=== PATIENT | male | born 1990 | race African-American/Black ===

== ENCOUNTER 2020-10-05 11:46 | Emergency (ER) | payer OTHER ==
[~2020-10-05] VITALS: Ht 172.7 cm; Wt 80.7 kg
[2020-10-05 14:21] LABS: GC DNA AMPLIFICATION NEGATIVE (NEGATIVE)
[2020-10-05] MEDS ORDERED: AZITHROMYCIN 250MG TABLET PO ONE (15:20)
[2020-10-05 15:44] VITALS: BP 134/89
== END 2020-10-05 15:46 | disposition home or self-care (01) ==
LOC: M ED 11:46
DX: A74.9 Chlamydial infection, unspecified (principal); R30.0 Dysuria

== ENCOUNTER → 2020-11-03 | Outpatient (CLI) | payer OTHER ==
--- NOTE | 2020-11-03 14:03 | REP ---
INDICATION: RT LEG PAIN. COMPARISON: None. TECHNIQUE: 22.0 mCi of technetium 99 M MDP is injected and standard 3 phase imaging of the calves is acquired. FINDINGS: Anterior and posterior flow study is normal. Blood pool images demonstrate normal symmetric soft tissue uptake in the calf soft tissues bilaterally. Delayed scan images show a mild pattern of increased uptake in the medial and posterior tibial cortices bilaterally consistent with mild stress periostitis. No established stress fracture is seen. IMPRESSION: Mild stress periostitis pattern in each tibia. No established stress fracture seen. <Electronically signed by Avery Mcdaniel > 11/03/20 1400
== END ==
LOC: M RAD 10:15
PROVIDERS: ATTEND Nurse Practitioner
DX: M79.604 Pain in right leg (principal)
CPT/HCPCS: 78315; A9503

== ENCOUNTER 2021-03-10 09:31 | Emergency (ER) | payer OTHER ==
[~2021-03-10] VITALS: Ht 172.7 cm; Wt 77.4 kg
[2021-03-10] MEDS ORDERED: MELO15TA28 PO (09:38)
[2021-03-10] MEDS ORDERED: MECLIZINE 12.5 MG TAB PO ONE (11:30)
[2021-03-10] MEDS ORDERED: MECL1TAB31 PO (11:53)
[2021-03-10 12:11] VITALS: BP 140/79
== END 2021-03-10 12:26 | disposition home or self-care (01) ==
LOC: M ED 09:31
DX: H93.12 Tinnitus, left ear (principal); G43.909 Migraine, unspecified, not intractable, without status migrainosus; M54.50 Low back pain, unspecified

== ENCOUNTER → 2021-06-16 | Outpatient (CLI) | payer OTHER ==
[~2021-06-16] MED LIST: MECL1TAB31 PO; MELO15TA28 PO
== END ==
LOC: M SLEEP 20:00
PROVIDERS: ATTEND Nurse Practitioner Family
DX: R06.83 Snoring (principal)

== ENCOUNTER → 2021-07-13 | Outpatient (CLI) | payer OTHER ==
[~2021-07-13] MED LIST changes: +PROHANCE 279.3MG/ML 15ML VIAL ONE
== END ==
LOC: M PLAIMG 09:12
PROVIDERS: ATTEND Otolaryngology
DX: H93.12 Tinnitus, left ear (principal)
CPT/HCPCS: 70553; A9576

== ENCOUNTER → 2021-07-18 | Outpatient (REF) ==
[~2021-07-18] MED LIST changes: -PROHANCE 279.3MG/ML 15ML VIAL ONE
== END ==
LOC: M PLAIMG 12:19
PROVIDERS: ATTEND Internal Medicine
DX: R91.1 Solitary pulmonary nodule (principal); R06.02 Shortness of breath